=== PATIENT | male | born 1970 | race Caucasian/White ===

== ENCOUNTER 2016-09-22 21:26 | Emergency (ER) | payer OTHER ==
[2016-09-22 21:31] VITALS: BP 146/95; PULSE 53; RESP 16; TEMP 98.2; O2SAT 99
--- NOTE | 2016-09-22 23:06 | EDPHY ---
H & P Time Seen by Provider: 09/22/16 22:13 HPI/ROS: CHIEF COMPLAINT: Fall hiking, right buttock pain HISTORY OF PRESENT ILLNESS: 45-year-old male presents to the emergency department with pain in his right buttock after he fell 36 hours ago. The patient is requesting x-ray of his pelvis and sacral spine. He apparently has a friend that is physician and advised him to come have x-rays taken to rule out fracture. Patient denies any bowel or bladder problems. Denies any other back pain. Denies radicular symptoms in his lower legs. Denies weakness in his lower legs. Denies chest pain or difficulty breathing. Denies paresthesias in upper or lower extremities. Denies abdominal pain. REVIEW OF SYSTEMS: Constitutional: No fever, no chills. Eyes: No double or blurry vision. ENT: No sore throat. Respiratory: No cough, no shortness of breath. Cardiac: No chest pain. Gastrointestinal: No abdominal pain, vomiting or diarrhea. Genitourinary: No dysuria. Musculoskeletal: Back pain as above. No neck pain. Skin: No rashes. Neurological: No headache. Past Medical/Surgical History: Negative Social History: Single and lives in [place] Smoking Status: Never smoked Physical Exam: General Appearance: Alert, no distress. No visible signs of trauma to his head. Mentating normally and answering questions appropriately. Eyes: Pupils equal and round. Extraocular motions are all intact. ENT: Mouth: Mucous membranes moist. Respiratory: No wheezing, rhonchi, or rales, lungs are clear to auscultation. Cardiovascular: Regular rate and rhythm. Gastrointestinal: Abdomen is soft and nontender, no masses, no rebound or guarding, bowel sounds normal. Neurological: Alert and oriented x 3, cranial nerves II through XII grossly intact Skin: Warm and dry, no rashes. Musculoskeletal: Nontender to palpate along the cervical, thoracic or lumbar spine. Neck is supple. Mildly tender to palpate over the sacral spine and more so over the right posterior pelvis. Pelvis is stable. Patient has a normal gait. Straight leg raise is negative bilaterally. Extremities: Full range of motion and no peripheral edema. Psychiatric: Patient is oriented X 3, there is no agitation. Constitutional: Initial Vital Signs Temperature (C) 36.8 C 09/22/16 21:29 Heart Rate 53 L 09/22/16 21:29 Respiratory Rate 16 09/22/16 21:29 Blood Pressure 146/95 H 09/22/16 21:29 O2 Sat (%) 99 09/22/16 21:29 O2 Delivery Mode Room Air Allergies/Adverse Reactions: No Known Allergies Allergy (Unverified 09/22/16 21:29) Home Medications: Medication Instructions Recorded NK [No Known Home Meds] 04/04/14 Medical Decision Making - Diagnostics Imaging Results: X-rays of pelvis and sacral spine and coccyx were negative for fracture. This is reviewed by myself and the PAC system as well as by the radiologist. Imaging: I viewed and interpreted images myself ED Course/Re-evaluation: 45-year-old male presents to the emergency department after he fell hiking injuring his low back. X-rays of his sacral spine and pelvis were negative for fracture. Patient was encouraged to use anti-inflammatories and activity as tolerated. Told to return if he develops any change in symptoms or if he feels worse in any way. Differential Diagnosis: Back pain including but not limited to muscular pain, herniated disc, spine fracture, intra-abdominal causes and urinary tract infection. Departure - Departure Disposition: Home, Routine, Self-Care Clinical Impression: Contusion right buttock Condition: Good Instructions: Contusion in Adults (ED) Additional Instructions: Ibuprofen 600 mg every 8 hours as needed for pain. Activity as tolerated. Return to the emergency department if you develop numbness or tingling in your toes, weakness in your legs, or if you feel worse in any way. Referrals: Sana Rossi MD [Medical Doctor] - 2-3 days, if not improved (Primary care provider diagnostic cardiac sonographer)
== END 2016-09-22 23:18 | disposition home or self-care (01) ==
DX: S30.0XXA Contusion of lower back and pelvis, initial encounter (principal); W18.39XA Other fall on same level, initial encounter; Y93.01 Activity, walking, marching and hiking